=== PATIENT | female | born 1960 | race Caucasian/White ===

== ENCOUNTER 2022-09-25 11:55 | Day surgery (SDC) | payer SELFPAY ==
[2022-09-21 09:36] LABS: BASOPHILS # (AUTO) 0.1 X10'3 (0-0.2); EOSINOPHILS # (AUTO) 0.1 X10'3 (0-0.9); EOSINOPHILS % (AUTO) 2.3 % (0-6); LYMPHOCYTES # (AUTO) 1.3 X10'3 (1.1-4.8); LYMPHOCYTES % (AUTO) 23.7 % (21-51); MEAN CORPUSCULAR HEMOGLOBIN 30.7 PG (27.0-31.0); MEAN CORPUSCULAR HGB CONC 34.1 g/dL (33.0-36.5); MEAN CORPUSCULAR VOLUME 90.1 FL (78-98); MEAN PLATELET VOLUME 9.2 FL (7.4-10.4); MONOCYTES # (AUTO) 0.4 X10'3 (0-0.9); MONOCYTES % (AUTO) 7.5 % (2-12); NEUTROPHILS # (AUTO) 3.5 X10'3 (1.8-7.7); NEUTROPHILS % (AUTO) 65.5 % (42-75); PRE OP HEMOGLOBIN 12.6 g/dL (12.0-16.0); PRE OP PLATELET COUNT 195 X10'3 (140-440); RED CELL DISTRIBUTION WIDTH 14.4 % (11.5-14.5)
[2022-09-21 09:44] LABS: ALBUMIN 3.7 G/DL (3.4-5.0); ALBUMIN/GLOBULIN RATIO 1.2 (1.1-1.5); ALKALINE PHOSPHATASE 83 IU/L (46-116); BLOOD UREA NITROGEN 25 MG/DL (7-18); BUN/CREATININE RATIO 26.9 (10.0-20.0); CALCIUM 8.8 MG/DL (8.5-10.1); CHLORIDE 107 MMOL/L (99-107); CREATININE 0.93 MG/DL (0.40-0.90); PRE OP ALT 16 U/L (30-65); PRE OP ANION GAP 6 (8-16); PRE OP AST 14 U/L (10-37); PRE OP BILIRUB, TOTAL 0.6 MG/DL (0.0-1.0); PRE OP GLUCOSE 98 MG/DL (70-104); PRE OP SODIUM 140 MMOL/L (135-145); TOTAL CARBON DIOXIDE 26.8 MMOL/L (24-32); TOTAL PROTEIN 6.8 G/DL (6.4-8.2); eGFR 61 ML/MIN
[~2022-09-25] VITALS: Ht 152.4 cm; Wt 84.6 kg
[2022-09-25] VITALS (9 sets, daily range): BP systolic 124–148; BP diastolic 50–68
[~2022-09-25 11:55] MED LIST: ALPR0.5T8 PO; CHOL125C6 PO; CYAN50009 PO; EZET10TA6 PO; LISI2.5T14 PO; MULT-227 PO; OMEP20CA16 PO; ROSU20TA2 PO; SERT50TA PO; cefazolin 2gm/D5W 100mL 100 ML IV ONE; famotidine 20mg tablet PO ONE; ringers solution, lacted 1,000 ML IV SCH
[2022-09-25] MEDS ORDERED: sevoflurane 250ml liquid IH ONE (15:43)
[2022-09-25] MEDS ORDERED: dexamethasone sod phosphate 10mg/ml inj ONE (15:43)
[2022-09-25] MEDS ORDERED: LIDOcaine 2% (20mg/ml) 5ml vial ONE (15:43)
[2022-09-25] MEDS ORDERED: fentaNYL/PF 50MCG/1 ML 2ML syringe ONE (15:47)
[2022-09-25] MEDS ORDERED: MIDAZolam 1 MG/ML 5ML VIAL ONE (15:47)
[2022-09-25] MEDS ORDERED: ringers solution, lacted 1,000 ML IV SCH (16:50)
[2022-09-25] MEDS ORDERED: ondansetron/PF 4mg/2ml inj IV PRN (16:50)
[2022-09-25] MEDS ORDERED: meperidine/PF 25mg/ml syringe IV PRN ×3 (16:50)
[2022-09-25] MEDS ORDERED: proCHLORperazine 10 MG/2 ml inj IV PRN (16:50)
[2022-09-25] MEDS ORDERED: morphine 4 MG/ML inj SYRINge IV PRN (16:50)
[2022-09-25] MEDS ORDERED: morphine 2 MG/ML inj. syringe IV PRN (16:50)
[2022-09-25] MEDS ORDERED: ondansetron/PF 4mg/2ml inj ONE (17:44)
[2022-09-25] MEDS ORDERED: propofol inj 20 ML IV ONE (17:44)
[2022-09-25] MEDS ORDERED: vancomycin 1,000mg inj ONE (18:02)
[2022-09-25] MEDS ORDERED: meperidine/PF 25mg/ml syringe ONE (18:25)
--- NOTE | 2022-09-25 20:12 | NUR ---
PT REMAINS COMFORTABLE AND IS ABLE TO AMBULATE SAFELY. D/C INSTRUCTIONS GIVEN AND GONE OVER W/PT WHO VERBALIZED UNDERSTANDING. HOME CARE ALSO DISCUSSED W/PTS WHO VERBALIZED UNDERSTANDING. PT DC/D TO HOME VIA W/C TO PRIVATE VEHICLE W/O INCIDENT. Addendum: 09/25/22 at 2021 by Yanna Luis RN Amended: Links added.
== END 2022-09-25 20:12 | disposition home or self-care (01) ==
LOC: PAS 11:55
PROVIDERS: ATTEND Specialist
DX: S52.121A Displaced fracture of head of right radius, initial encounter for closed fracture (principal); S53.431A Radial collateral ligament sprain of right elbow, initial encounter; I10 Essential (primary) hypertension; K21.9 Gastro-esophageal reflux disease without esophagitis; F41.9 Anxiety disorder, unspecified; E66.9 Obesity, unspecified; Z68.37 Body mass index [BMI] 37.0-37.9, adult; G89.18 Other acute postprocedural pain; Z91.040 Latex allergy status; Z90.49 Acquired absence of other specified parts of digestive tract; Z98.890 Other specified postprocedural states; Z98.84 Bariatric surgery status; Z79.899 Other long term (current) drug therapy; W10.9XXA Fall (on) (from) unspecified stairs and steps, initial encounter; Y93.89 Activity, other specified; Y92.89 Other specified places as the place of occurrence of the external cause; Y99.8 Other external cause status
CPT/HCPCS: 24666; 36415; 64415; 71045; 73080; 76000; 80053; 82948; 85025; 93005; A6222; C1713; C1776; J0690; J1100; J2175; J2250; J2405; J2704; J3010; J3370; J3490; J7030; J7120; Z7506; Z7508; Z7512; 73070; A4215; A4615; A4618; A6253; A6449; A7000